=== PATIENT | female | born 1950 | race Caucasian/White ===

== ENCOUNTER 2020-08-23 14:14 | Outpatient (REF) | payer OTHER, SELFPAY ==
[2020-08-27 22:44] LABS: Patient Race White; SARS-CoV-2 RNA Undetected (Undetected); SARS-CoV-2 Specimen Source Nasal
== END 2020-08-23 14:34 ==
LOC: NCHCN 14:14
PROVIDERS: PCP Family Medicine; Visit Provider Family Medicine
DX: Z11.59 Encounter for screening for other viral diseases (principal)
CPT/HCPCS: U0003

== ENCOUNTER 2020-08-27 09:34 | Outpatient (CLI) | payer OTHER, SELFPAY ==
--- NOTE | 2020-08-27 09:22 | DI.RAD_ITS ---
EXAM: XR SHOULDER RT COMPLETE 2+V CLINICAL HISTORY: Right shoulder pain. TECHNIQUE: 2D digital imaging was performed. COMPARISON: No exams were available for comparison FINDINGS: BONES: There is disruption of the cortex at the anterior superior glenoid suspicious for nondisplaced fracture. No bony destructive lesion is seen. Mild hypertrophic changes are seen at the lateral asp ect of the acromion. JOINTS: No dislocation present. There are degenerative changes seen at the glenohumeral joint. The h umeral head is superiorly placed relative to the glenoid raising the question of a chronic rotator cu ff tear. There is a orthopedic anchor in the proximal metaphysis of the right humerus. The bones ar e normally mineralized. SOFT TISSUE: Normal. IMPRESSION: 1. Question of and fracture involving the anterior superior glenoid. CT scan may be considered for f urther evaluation if clinically indicated. 2. Postsurgical changes in the right shoulder. 3. Degenerative changes of the right shoulder. 4. Findings raising the question of a rotator cuff tear. If there is continued clinical concern, an MRI may be obtained for further evaluation. DATA REPOSITORY: RADIATION DOSE DELIVERED:
== END 2020-08-27 09:54 ==
PROVIDERS: PCP Family Medicine; Referring Provider Family Medicine; Visit Provider Student in an Organized Health Care Education/Training Program
DX: M19.011 Primary osteoarthritis, right shoulder (principal)
CPT/HCPCS: 73030

== ENCOUNTER 2020-10-29 17:12 | Outpatient (REF) | payer OTHER, SELFPAY ==
[2020-10-29 22:27] LABS: Vitamin B12 954 pg/mL (193-986)
== END 2020-10-29 17:32 ==
LOC: LBN 17:12
PROVIDERS: PCP Family Medicine; Visit Provider Family Medicine
DX: E53.8 Deficiency of other specified B group vitamins (principal)
CPT/HCPCS: 82607